=== PATIENT | male | born 1970 ===

== ENCOUNTER 2017-10-19 12:47 | Emergency (ER) | payer SELFPAY ==
[2017-10-19 12:51] VITALS: RESP 18
[2017-10-19] MEDS ORDERED: Lidocaine 2% Inj (20ml) SC ONE (12:56)
[2017-10-19] MEDS ORDERED: Lidocaine 2% Inj (20ml) ONE ×2 (13:30→14:01)
--- NOTE | 2017-10-19 13:33 | RAD ---
PROCEDURE: Right Thumb radiographs. HISTORY: crush COMPARISON: None available. TECHNIQUE: AP radiograph of the right hand, as well as spot oblique and lateral images of thumb were obtained. FINDINGS: RIGHT THUMB: Displaced fracture of the distal 1st tuft. Remainder of the right hand (as seen on the AP view) grossly unremarkable. JOINTS: No dislocation. SOFT TISSUES: Soft tissue swelling and evidence of laceration at the distal 1st phalanx. No evidence of radiopaque foreign body. OTHER FINDINGS: None. IMPRESSION: Displaced fracture of the distal 1st tuft with distraction of the fracture fragments approximately 3 mm. Soft tissue swelling and evidence of laceration at the distal 1st phalanx.
[2017-10-19] MEDS ORDERED: Bacitracin 500 Units/gm Oint Foilpak UD ONE (14:15)
--- NOTE | 2017-10-19 14:16 | C.PDOC ---
History Of Present Illness 47 y/o male presents to the ER for evaluation of a crushing injury to the right thumb which occurred today. Patient reports that he got his right thumb stuck between a dumpster and doorway at work. Patient does not have any other medical complaints. Time Seen by Provider: 10/19/17 12:54 Chief Complaint (Nursing): Finger,Hand,&Wrist History Per: Patient History/Exam Limitations: no limitations Onset/Duration Of Symptoms: Hrs Current Symptoms Are (Timing): Still Present Severity: Moderate Past Medical History Reviewed: Historical Data, Nursing Documentation, Vital Signs Vital Signs: Last Vital Signs Temp 97.6 F 10/19/17 14:31 Pulse 58 L 10/19/17 14:31 Resp 18 10/19/17 14:31 BP 131/84 10/19/17 14:31 Pulse Ox 97 10/19/17 18:02 - Medical History PMH: No Chronic Diseases Surgical History: Appendectomy Family History: States: No Known Family Hx - Social History Hx Alcohol Use: Yes Hx Substance Use: No - Immunization History Hx Tetanus Toxoid Vaccination: No Hx Influenza Vaccination: No Hx Pneumococcal Vaccination: No Review Of Systems Except As Marked, All Systems Reviewed And Found Negative. Musculoskeletal: Positive for: Hand Pain (right thumb pain) Neurological: Negative for: Weakness, Numbness Physical Exam - Physical Exam Appears: Non-toxic, No Acute Distress Skin: Normal Color, Warm Head: Atraumatic, Normacephalic Eye(s): bilateral: Normal Inspection, PERRL Nose: Normal Oral Mucosa: Moist Neck: Supple Chest: Symmetrical Cardiovascular: Rhythm Regular Respiratory: Normal Breath Sounds, No Accessory Muscle Use Extremity: Deformity (deformity of right thumb, nail evulses from the matrix, small subcentimeter lag on tip of thumb) ED Course And Treatment O2 Sat by Pulse Oximetry: 97 - Other Rad R thumb X-Ray: Interpreted by Me, Read By Radiologist (+ tuft fx) Progress Note: R thumb ring block with lido 2% x 10 cc. R thumb/nail throughly soaked and washed replaced into nail matrix, and suture x 2 of 3-0 nylon to secure in place. bacitracin ointment and splint/bandage. Medical Decision Making Medical Decision Making: R thumb crush injury @ work w nail root disruption from the matrix and + tuft fx now cleaned and replaced nail matrix and sutured in place with good effect. Keflex BID x 3 days prophylaxis opt f/u with Dr. Manriquez- Hand Chrome Polisher- or return in 2 and 7 days for suture removal. Disposition Doctor Will See Patient In The: Office Counseled Patient/Family Regarding: Studies Performed, Diagnosis - Disposition Referrals: [facility] at [facility] [Outside] Juan Manriquez MD [Staff Provider] - Disposition: HOME/ ROUTINE Disposition Time: 14:16 Condition: GOOD Additional Instructions: mantiene elevado para bajar el dolor Ibuprofeno 400-600 mg cada 6 horas bolsa de hielo 1/2 hora por hora, nada caliente Tramadol 50 mg (narcotico) para dolor mas jen y para dormir. Marnie tableta cada 4-[address] Manriquez- especialista de los james- en 2 sesay para re-evaluar Wound Check en 2 sesay (en [facility] si no va con Dr. Manriquez) Sacamos puntos en 7-10 sesay. Prescriptions: Cephalexin [cephalexin] 500 mg PO BID #5 cap traMADol [Ultram] 50 mg PO Q6H PRN #20 tab PRN Reason: pain Instructions: Thumb Fracture (ED) Forms: [employer] (Mongolian) Print Language: VENEZUELAN - Clinical Impression Clinical Impression: Crushing injury of thumb, left
[2017-10-19 14:34] VITALS: BP 131/84; PULSE 58; TEMP 97.6
[2017-10-19 17:54] VITALS: O2SAT 97
== END 2017-10-19 14:33 | disposition home or self-care (01) ==
LOC: C.ER 12:47
DX: S67.01XA Crushing injury of right thumb, initial encounter (principal); S62.521B Displaced fracture of distal phalanx of right thumb, initial encounter for open fracture; W23.0XXA Caught, crushed, jammed, or pinched between moving objects, initial encounter; Y92.89 Other specified places as the place of occurrence of the external cause; Y99.0 Civilian activity done for income or pay

== ENCOUNTER 2017-10-22 15:28 | Emergency (ER) | payer OTHER ==
[2017-10-22 15:39] VITALS: BMI 36.1
[2017-10-22 15:41] VITALS: RESP 18; TEMP 98.4; O2SAT 96
--- NOTE | 2017-10-22 17:20 | C.PDOC ---
History Of Present Illness 47-year-old male, presents to the emergency department for wound check of right thumb. Patient was see in ER for thumb injury three days ago, but states he was unable to follow with hand specialist, resulting in him coming to the ED for f/ u. Denies fever, chills, increase pain to injured finger, wound discharges. or any new symptoms. Thumb spica noted to Right thumb. Time Seen by Provider: 10/22/17 16:00 Chief Complaint (Nursing): Wound Check History Per: Patient History/Exam Limitations: no limitations Past Medical History Reviewed: Historical Data, Nursing Documentation, Vital Signs Vital Signs: Last Vital Signs Temp 98.4 F 10/22/17 15:39 Pulse 70 10/22/17 17:35 Resp 18 10/22/17 17:35 BP 125/78 10/22/17 17:35 Pulse Ox 96 10/22/17 17:48 - Medical History PMH: No Chronic Diseases Surgical History: Appendectomy Family History: States: No Known Family Hx - Social History Hx Alcohol Use: Yes Hx Substance Use: No - Immunization History Hx Tetanus Toxoid Vaccination: Yes Hx Influenza Vaccination: No Hx Pneumococcal Vaccination: No Review Of Systems Constitutional: Negative for: Fever Gastrointestinal: Negative for: Vomiting Musculoskeletal: Positive for: Other (R hand wound check) Physical Exam - Physical Exam Appears: Well, Non-toxic, No Acute Distress Skin: Normal Color, Warm Extremity: Normal ROM (FAROM of Right thumb, no neurovscular deficits.), Tenderness (RIGHT THUMB: sutures#2 to nail bed, small open wound to palmar aspect 1st distal phalanx. No edema, no erythema, no cellulitis or wound draining. ), No Deformity Neurological/Psych: Oriented x3, Normal Speech, Normal Motor, Normal Sensation, Normal Reflexes ED Course And Treatment O2 Sat by Pulse Oximetry: 96 Progress Note: Wound was cleaned, dressed with Xeroform, non-stick, sterile dressing. FInger splint applied. Pt advised on wound care, cont. abx as intiated 2 days ago. ref. to f/uwith hand specialist in 2-3 days for re-eavl. return to Ed if any worsening or new changes. Disposition Counseled Patient/Family Regarding: Diagnosis, Need For Followup - Disposition Referrals: Juan Manriquez MD [Staff Provider] - at [facility] [Outside] Disposition: HOME/ ROUTINE Disposition Time: 17:00 Condition: STABLE Additional Instructions: KEEP DRESSING FOR 2 DAYS, NEEDS TO BE CHANGED BY HAND SPECIALIST OR ED LIGHT DUTY TO INJURED FINGER CONTINUE ANTIBIOTIC PRESCRIBED FOLLOW UP WITH HAND SPECIALIST IN 2 DAYS FOR RE-EVALUATION. RETURN IF ANY WORSENING OR NEW CHANGES. Instructions: Finger Fracture (ED) Forms: [employer] (Armenian) Print Language: MAORI - Clinical Impression Clinical Impression: Open finger fracture - Scribe Statement The provider has reviewed the documentation as recorded by the Scribe (Shan Ferguson) All medical record entries made by the Scribe were at my direction and personally dictated by me. I have reviewed the chart and agree that the record accurately reflects my personal performance of the history, physical exam, medical decision making, and the department course for this patient. I have also personally directed, reviewed, and agree with the discharge instructions and disposition.
--- NOTE | 2017-10-22 17:21 | C.PDOC ---
History Of Present Illness 47-year-old male, presents to the emergency department Time Seen by Provider: 10/22/17 16:00 Chief Complaint (Nursing): Wound Check History Per: Patient History/Exam Limitations: no limitations Past Medical History Reviewed: Historical Data, Nursing Documentation, Vital Signs Vital Signs: Last Vital Signs Temp 98.4 F 10/22/17 15:39 Pulse 74 10/22/17 15:39 Resp 18 10/22/17 15:39 BP 128/88 10/22/17 15:39 Pulse Ox 96 10/22/17 15:39 Surgical History: Appendectomy Family History: States: No Known Family Hx - Social History Hx Alcohol Use: Yes Hx Substance Use: No - Immunization History Hx Tetanus Toxoid Vaccination: No Hx Influenza Vaccination: No Hx Pneumococcal Vaccination: No Physical Exam - Physical Exam Appears: Non-toxic, No Acute Distress Skin: Warm, Dry, No Rash ED Course And Treatment O2 Sat by Pulse Oximetry: 96 Disposition - Disposition Forms: [employer] (Slovak) - Scribe Statement The provider has reviewed the documentation as recorded by the Scribe (Shan Ferguson) All medical record entries made by the Scribe were at my direction and personally dictated by me. I have reviewed the chart and agree that the record accurately reflects my personal performance of the history, physical exam, medical decision making, and the department course for this patient. I have also personally directed, reviewed, and agree with the discharge instructions and disposition.
[2017-10-22 17:36] VITALS: BP 125/78; PULSE 70
== END 2017-10-22 17:36 | disposition home or self-care (01) ==
LOC: C.ER 15:28
DX: S62.501B Fracture of unspecified phalanx of right thumb, initial encounter for open fracture (principal); X58.XXXA Exposure to other specified factors, initial encounter

== ENCOUNTER 2017-10-30 14:28 | Emergency (ER) | payer OTHER ==
[2017-10-30 14:28] VITALS: BMI 36.1
[2017-10-30 15:06] VITALS: BP 142/79; PULSE 62; RESP 15; TEMP 98.2; O2SAT 99
--- NOTE | 2017-10-30 15:17 | C.PDOC ---
History Of Present Illness 47 year old male presents to the ED for suture removal. Patient sustained a crush injury to his right thumb after it got stuck between a dumpster and a doorway. He was evaluated in the ED on 10/19 and returned for a wound check on . Patient was unable to follow up with hand specialist but has been compliant with his antibiotics. He returns today for suture removal. He denies discharge, swelling or pain to the area. Time Seen by Provider: 10/30/17 15:07 Chief Complaint (Nursing): Suture/Staple Removal History Per: Patient History/Exam Limitations: no limitations Onset/Duration Of Symptoms: Days Ago Current Symptoms Are (Timing): Still Present Location Of Injury: Right: Hand (thumb ) Quality Of Symptoms: denies: Painful, Itching, Swollen, Draining Additional History Per: Patient Past Medical History Reviewed: Historical Data, Nursing Documentation, Vital Signs Vital Signs: Last Vital Signs Temp 98.2 F 10/30/17 15:05 Pulse 62 10/30/17 15:05 Resp 15 10/30/17 15:05 BP 142/79 10/30/17 15:05 Pulse Ox 99 11/06/17 07:16 - Medical History PMH: No Chronic Diseases Surgical History: Appendectomy Family History: States: Unknown Family Hx - Social History Hx Alcohol Use: Yes Hx Substance Use: No - Immunization History Hx Tetanus Toxoid Vaccination: Yes Hx Influenza Vaccination: No Hx Pneumococcal Vaccination: No Review Of Systems Skin: Positive for: Other (suture removal from right thumb. no pain, swelling or discharge ) Physical Exam - Physical Exam Appears: Non-toxic, No Acute Distress Skin: Normal Color, Warm, Dry, Other (white-appearing nail is in place on nailbed. two sutures (one on each side of the nail) in place. no discharge or surrounding erythema ) Extremity: Capillary Refill (less than 2 seconds ), No Swelling Neurological/Psych: Normal Motor, Normal Sensation ED Course And Treatment O2 Sat by Pulse Oximetry: 99 (on RA) Pulse Ox Interpretation: Normal Medical Decision Making Medical Decision Making: Progress: Two sutures removed successfully. Patient tolerated well. Patient is stable for discharge and is advised to finish course of antibiotics. 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 - Scribe Statement The provider has reviewed the documentation as recorded by the Scribe (Janki Villafuerte) All medical record entries made by the Scribe were at my direction and personally dictated by me. I have reviewed the chart and agree that the record accurately reflects my personal performance of the history, physical exam, medical decision making, and the department course for this patient. I have also personally directed, reviewed, and agree with the discharge instructions and disposition.
== END 2017-10-30 16:15 | disposition home or self-care (01) ==
LOC: C.ER 14:28
DX: Z48.02 Encounter for removal of sutures (principal)